=== PATIENT | female | born 1995 | race African-American/Black ===

== ENCOUNTER 2017-04-24 00:09 | Emergency (ER) | payer OTHER ==
[~2017-04-24] VITALS: Ht 180.3 cm; Wt 72.5 kg
[2017-04-24 00:10] VITALS: BP 146/71; PULSE 82; RESP 16; TEMP 98.4; O2SAT 96
--- NOTE | 2017-04-24 01:26 | PD ---
HPI Chief Complaint: Injury Time Seen by Provider: 01:16 Travel History International Travel<30 days: No Contact w/Intl Traveler<30days: No Traveled to known affect area: No History of Present Illness HPI 21-year-old black female presents to emergency Department with complaints of right knee pain. The patient states that she was jumping up and down prior to arrival when she felt a pop in her right knee. Since then she's had pain with movement. She states the pain is mild to moderate. Worse with weightbearing. Some relief with elevation. No prior injury. No recent illness otherwise. PFSH Past Medical History Medical History: Denies Significant Hx Immunizations Current: Yes Tetanus Vaccination: < 5 Years ?: Not LMP: 04/23/17 Past Surgical History Surgical History: No Previous Surgery Social History Alcohol Use: No Tobacco Use: No Substance Use: No Allergies-Medications (Allergen,Severity, Reaction): Coded Allergies: citric acid (Verified Allergy, Mild, Rash, 04/24/17) peanut (Verified Allergy, Mild, Hives, 04/24/17) Reported Meds & Prescriptions Reported Meds & Active Scripts Active Diclofenac Sodium DR (Diclofenac Sodium) 75 Mg Tabdr 75 Mg PO BID Review of Systems Except as stated in HPI: all other systems reviewed are Neg Physical Exam Narrative GENERAL: This is a well-nourished, well-developed patient, in no apparent distress. SKIN: No rashes, ecchymoses or lesions. Warm and dry. HEAD: Atraumatic. Normocephalic. EYES: PERRL, EOMI, no discharge or injection. No scleral icterus. EARS: Clear NOSE: Nasal turbinates appear normal. THROAT: Mucosa pink and moist. Airway patent. NECK: Trachea midline. supple, moves head freely. LUNGS: Clear to auscultation. CV: Regular in rhythm. ABDOMEN: Soft nontender. EXT: No clubbing cyanosis or edema. Examination the right lower extremity reveals soft tissue tenderness around the patella. She has full extension but has limited flexion due to pain. No anterior posterior draw. No medial lateral collateral ligament instability. No pain in the hip, ankle or foot. She has intact sensation with good distal pulses. The left lower extremity as well as upper extremities are without localizing bony tenderness or deformity. Neurovascularly intact. Data Data Last Documented VS Vital Signs Date Time Temp Pulse Resp B/P (MAP) Pulse Ox O2 Delivery O2 Flow Rate FiO2 04/24/17 00:10 98.4 82 16 146/71 (96) 96 Room Air Orders Orders Knee, Complete (4vws) (04/24/17 01:20) Ice/Cold Pack (04/24/17 01:20) Splint Or Brace Apply/Monitor (04/24/17 01:20) Crutches (04/24/17 01:20) Ibuprofen (Motrin) (04/24/17 01:30) Ed Discharge Order (04/24/17 01:58) MDM Medical Decision Making Medical Screen Exam Complete: Yes Emergency Medical Condition: Yes Medical Record Reviewed: Yes Interpretation(s) Right knee: Negative for acute fracture. No subluxation. No joint effusion. Differential Diagnosis MDM: High Differential diagnoses: Fracture, sprain, strain, dislocation, contusion, neurovascular injury Narrative Course Patient's given ice pack. X-ray of the right knee is negative for trauma. Patient's given Motrin 800 mg by mouth, Trevor wrap and crutches. This is right knee sprain Diagnosis Primary Impression: Right knee sprain Qualified Codes: S83.91XA - Sprain of unspecified site of right knee, initial encounter Patient Instructions: General Instructions Departure Forms: School Release, Please excuse from school until (free text option): No PE times one week. Tests/Procedures Additional Instructions: Rest. Elevation. Ice packs for the next 3 days. Trevor wrap and crutches. No weight-bearing and then progress to weight-bearing as tolerated. Medications as directed Follow-up with an orthopedist or your doctor in one week. Return to the ER if any problems Med/Other Pt SpecificInfo: Prescription(s) given Scripts Diclofenac Sodium DR (Diclofenac Sodium DR) 75 Mg Tabdr 75 MG PO BID, #20 TAB 0 Refills Prov: Arthur Lucero MD 04/24/17 Disposition: 01 DISCHARGE HOME Condition: Stable Bhaskar Monroe Apr 24, 2017 01:26
[2017-04-24] MEDS ORDERED: IBUPROFEN 800 MG TAB PO ONE (01:30)
[2017-04-24] MEDS ORDERED: DICL75TA PO (01:32)
--- NOTE | 2017-04-24 02:06 | RADRPT ---
EXAM DATE/TIME: 04/24/2017 01:41 [facility] COMPARISON: No previous studies available for comparison. INDICATIONS : Right knee pain after jumping injury today MEDICAL HISTORY : None. SURGICAL HISTORY : None. ENCOUNTER: Initial ACUITY: 1 day PAIN SCORE: 10/10 LOCATION: Right lateral knee FINDINGS: Four view examination of the right knee demonstrates no evidence of fracture or dislocation. Bony mi neralization is normal. The articular surfaces are intact. The suprapatellar soft tissues have a no rmal configuration. CONCLUSION: Unremarkable examination of the right knee. Omar Haro MD on April 24, 2017 at 2:04 Board Certified Radiologist. This report was verified electronically.
== END 2017-04-24 02:32 | disposition home or self-care (01) ==
LOC: NEPD 00:09
DX: S83.91XA Sprain of unspecified site of right knee, initial encounter (principal); X50.9XXA Other and unspecified overexertion or strenuous movements or postures, initial encounter; Y93.39 Activity, other involving climbing, rappelling and jumping off
CPT/HCPCS: 73564; 99283; E0113

== ENCOUNTER 2017-05-02 14:47 | Emergency (ER) | payer SELFPAY ==
[~2017-05-02] VITALS: Ht 180.3 cm; Wt 73.0 kg
[~2017-05-02 14:47] MED LIST: DICL75TA PO
[2017-05-02 14:48] VITALS: BP 133/81; PULSE 93; RESP 14; TEMP 98.4; O2SAT 95
--- NOTE | 2017-05-02 16:51 | PD ---
HPI Chief Complaint: Medical Clearance Time Seen by Provider: 16:41 Travel History International Travel<30 days: No Contact w/Intl Traveler<30days: No Traveled to known affect area: No History of Present Illness HPI 21-year-old female presents to the emergency room requesting medical clearance to return to sports. Patient came to the emergency room 8 days ago after injuring her right knee while jumping/running. She had an x-ray and was diagnosed with knee sprain. 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 Patient never followed up with a primary care physician or got outpatient imaging. She states her symptoms have improved significantly. She was not able to walk because of pain but now she is walking without difficulty. She has been taking ibuprofen with great relief in symptoms. Denies paresthesias. Patient states she only has a little bit of pain when she bends her knee all the way. [place]. History Social History Alcohol Use: No Tobacco Use: No Allergies-Medications (Allergen,Severity, Reaction): Coded Allergies: citric acid (Verified Allergy, Mild, Rash, 04/24/17) peanut (Verified Allergy, Mild, Hives, 04/24/17) Reported Meds & Prescriptions Reported Meds & Active Scripts Active Diclofenac Sodium DR (Diclofenac Sodium) 75 Mg Tabdr 75 Mg PO BID Review of Systems Except as stated in HPI: all other systems reviewed are Neg Physical Exam Narrative GENERAL: Well-nourished, well-developed female in no acute distress. Afebrile. Ambulatory. SKIN: Focused skin assessment warm/dry. No erythema or ecchymosis. HEAD: Normocephalic. EYES: No scleral icterus. No injection or drainage. NECK: Supple, trachea midline. No JVD or lymphadenopathy. CARDIOVASCULAR: Regular rate and rhythm without murmurs, gallops, or rubs. RESPIRATORY: Breath sounds equal bilaterally. No accessory muscle use. MUSCULOSKELETAL: No cyanosis, or edema. Full range of motion of the right knee. 2 posterior cells pedis pulse. Mild tenderness to palpation of the lateral knee. Data Data Last Documented VS Vital Signs Date Time Temp Pulse Resp B/P (MAP) Pulse Ox O2 Delivery O2 Flow Rate FiO2 05/02/17 14:48 98.4 93 14 133/81 (98) 95 MDM Medical Screen Exam Complete: Yes Emergency Medical Condition: No Differential Diagnosis Sprain, strain, contusion, fracture Narrative Course 21-year-old female presents to the emergency room requesting medical clearance to return to sports. Patient injured her knee a days ago and came to the emergency room. She was diagnosed with sprain after having a negative x-ray. She never followed up. She was told to get a note saying she could return to school by the professor of her physical education class. Patient was informed that without having MRI imaging to make sure there is no internal derangement of the knee, I do not feel comfortable clearing her. She should follow up with her primary care physician as originally instructed. There are no urgent or emergent medical conditions at this time. A medical screening exam was performed: At the time of evaluation the presenting medical condition was determined not to be of an emergent nature. The patient was given the option of receiving additional care, but declined. Patient was given options for additional community resources from which to obtain care. The Patient Has Been advised to seek medical attention for their presenting complaint. The patient has been advised to return to the ER at any time if an emergent condition develops. Primary Impression: Encounter for medical screening examination Disposition: 01 DISCHARGE HOME Condition: Stable Yesy Arauz May 02, 2017 16:51
== END 2017-05-02 16:57 | disposition left against medical advice (07) ==
LOC: NEPK 14:47
DX: S83.91XD Sprain of unspecified site of right knee, subsequent encounter (principal); X58.XXXD Exposure to other specified factors, subsequent encounter
CPT/HCPCS: 99281

== ENCOUNTER 2017-12-15 21:48 | Emergency (ER) | payer SELFPAY ==
[2017-12-15 22:44] VITALS: BP 127/69; PULSE 97; RESP 16; TEMP 98.9; O2SAT 98
--- NOTE | 2017-12-16 01:39 | PD ---
HPI Chief Complaint: Injury Time Seen by Provider: 01:36 Travel History International Travel<30 days: No Contact w/Intl Traveler<30days: No Traveled to known affect area: No History of Present Illness HPI 22-year-old female presents for evaluation of left foot pain. This afternoon she was moving a couch on the couch fell on her left foot. Since then she has had pain in her left foot ball, throbbing, constant, worse when walking, alleviated by not walking. She denies any other associated signs or symptoms. Denies any other injuries and she has no other complaints at this time. [facility] Past Medical History Immunizations Current: Yes Tetanus Vaccination: Unknown Influenza Vaccination: No ?: Not LMP: 12/08/17 Social History Alcohol Use: No Tobacco Use: No Substance Use: No Allergies-Medications (Allergen,Severity, Reaction): Coded Allergies: citric acid (Verified Allergy, Mild, Rash, 12/15/17) peanut (Verified Allergy, Mild, Hives, 12/15/17) Reported Meds & Prescriptions Reported Meds & Active Scripts Active Diclofenac Sodium DR (Diclofenac Sodium) 75 Mg Tabdr 75 Mg PO BID Review of Systems Musculoskeletal: Positive: Pain Skin: Positive Other (Denies open wounds) Neurologic: No: Paresthesia Physical Exam Narrative GENERAL: Well-developed well-nourished female no acute distress SKIN: Warm and dry. No open wounds, no bruising, no soft tissue swelling HEAD: Atraumatic. Normocephalic. CARDIOVASCULAR: Regular rate and rhythm. No murmur appreciated. RESPIRATORY: No accessory muscle use. Clear to auscultation. Breath sounds equal bilaterally. MUSCULOSKELETAL: No obvious deformities. Tender to palpation the dorsum of the left foot overlying the first metatarsal. No bruising or soft tissue swelling. The patient maintains full range of motion of left foot, ankle, toes. 2+ dorsalis pedis pulse. NEUROLOGICAL: Awake and alert. No obvious cranial nerve deficits. Motor grossly within normal limits. Normal speech. Data Data Last Documented VS Vital Signs Date Time Temp Pulse Resp B/P (MAP) Pulse Ox O2 Delivery O2 Flow Rate FiO2 12/15/17 22:44 98.9 97 16 127/69 (88) 98 Orders Orders Foot, Complete ([id number]) (12/16/17 ) Ed Discharge Order (12/16/17 03:24) MDM Medical Decision Making Medical Screen Exam Complete: Yes Emergency Medical Condition: Yes Medical Record Reviewed: Yes Differential Diagnosis Contusion, sprain, fracture Narrative Course X-ray of the left foot was obtained revealing no acute abnormalities. The patient appears to have a contusion to her foot. She is stable for discharge. Diagnosis Primary Impression: Contusion of left foot Additional Instructions: Take Tylenol Motrin for pain. Ice the area several times a day 15 minutes at a time. Return for any emergent medical conditions. Med/Other Pt SpecificInfo: No Change to Meds Disposition: 01 DISCHARGE HOME Condition: Stable Chris Goode Dec 16, 2017 01:39
--- NOTE | 2017-12-16 02:22 | RADRPT ---
EXAM DATE: 12/16/2017 2:18 AM EDT AGE/SEX: 22 years / Female INDICATIONS: LT foot pain. CLINICAL DATA: This is the patient's initial encounter. Patient reports that signs and symptoms have been present for 1 day and indicates a pain score of 6/10. MEDICAL/SURGICAL HISTORY: None. None. COMPARISON: No prior [facility] exams available for comparison. FINDINGS: Bony structures are intact and in normal alignment. Osseous density is normal. Soft tissues are unre markable. No radiopaque foreign bodies seen. CONCLUSION: Unremarkable exam. Electronically signed by: Eduardo Mayfield MD 12/16/2017 2:21 AM EDT
== END 2017-12-16 03:42 | disposition home or self-care (01) ==
LOC: NEPD 21:48
DX: S90.32XA Contusion of left foot, initial encounter (principal); W20.8XXA Other cause of strike by thrown, projected or falling object, initial encounter; Y93.89 Activity, other specified
CPT/HCPCS: 73630; 99283